=== PATIENT | female | born 1945 | race Caucasian/White ===

== ENCOUNTER 2017-01-24 09:05 | Emergency (ER) | payer OTHER ==
[2017-01-24 09:20] VITALS: BP 134/75; PULSE 91; TEMP 98.4; BMI 46.5
[2017-01-24] MEDS ORDERED: CEPHALEXIN MONOHYDRATE 500 MG CAPSULE (UD) PO ONE (10:12)
--- NOTE | 2017-01-24 10:15 | PDOC ---
History of Present Illness - General Chief Complaint: Rash Stated Complaint: RASH Time Seen by Provider: 01/24/17 09:19 - History of Present Illness Initial Comments: 01/24/17 11:48 Chief complaint: Rash on the forehead History of present illness: Patient states that she had a small pimple on her forehead, which she scratched. She subsequently developed redness and drainage in the area. No pain. No involvement of the eyes or orbits. Review of systems: No recent scalp irritation or lesions. No fever/chills. No URI symptoms, sore throat, cough, chest pain, shortness of breath, abdominal pain, nausea, vomiting, diarrhea. Past medical history: Patient has an extensive medical history including breast cancer, intermittent palpitations, ventricular tachycardia, high blood pressure , and chronic back pain. She has multiple musculoskeletal problems and chronic edema of the lower extremities. She has a pressure ulcer on her sacrum that is being treated at the wound care center [facility]. 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 The lesion is approximately 2 cm in diameter, with an erythematous base and crusting. There are no vesicles. There is no exudate or drainage. There is no involvement of the orbits or the eyes. Conjunctivae and corneas are clear. The skin is not painful and it is nontender to deep palpation. There are no lesions on the scalp. ENT clear Neck supple without bruit mass or nodes Chest clear CV without murmur or gallop Abdomen benign Impression: Skin lesion suggestive of healing herpes simplex. The patient gives a history of occasional "cold sores" on the lips, but not in this region. Other possibilities are impetigo/cellulitis Plan: Crusting was gently removed and cultures were taken of the base of the lesion, for routine C&S and herpesvirus culture. Wound care was discussed. The lesion was dressed with bacitracin and covered with a Band-Aid. Keflex was prescribed pending culture results. The patient was instructed to follow up with primary physician, but to return to the emergency room if the infection appeared to be spreading, especially involving the areas around the eyes. In no pain or other distress upon discharge with her caregiver to follow-up as directed Past History - Past Medical History Allergies/Adverse Reactions: Allergies Allergy/AdvReac Type Severity Reaction Status Date / Time Penicillins Allergy Verified 01/24/17 09:14 Home Medications: Ambulatory Orders Aspirin [ASA -] 81 mg PO DAILY 08/27/14 Diclofenac Sodium [Voltaren] 300 gm TP TID PRN 08/27/14 Ergocalciferol [Vitamin D2] 50,000 unit PO MOFR@1000 08/27/14 Gabapentin [Neurontin -] 300 mg PO DAILY 08/27/14 Lactulose 20 gm PO DAILY PRN 08/27/14 Metoprolol Succinate [Toprol XL -] 25 mg PO DAILY 08/27/14 Morphine *Sr* [MS Contin -] 30 mg PO Q12H #60 tablet.sa MDD 2 01/03/17 Cephalexin Monohydrate [Keflex] 500 mg PO Q8H #20 capsule 01/24/17 Lisinopril [Zestril] 2.5 mg PO DAILY 01/24/17 Morphine Sulfate [Morphine Sulfate ER] 15 mg PO BID MDD 2 01/24/17 Asthma: No Cancer: Yes (breast cancer tx 2005) Cardiac Disorders: Yes (PVCs palpitations) COPD: No DVT: No Diabetes: No HTN: No Liver Disease: No Seizures: No - Surgical History Orthopedic Surgery: Yes (left hip surgery ) - Suicide/Smoking/Psychosocial Hx Smoking Status: No Smoking History: Never smoked Have you smoked in the past 12 months: No Number of Cigarettes Smoked Daily: 0 If you are a former smoker, when did you quit?: 15 years ago Cigars Per Day: 0 Hx Alcohol Use: No Drug/Substance Use Hx: No Substance Use Type: None Hx Substance Use Treatment: No *Physical Exam - Vital Signs Last Vital Signs Temp Pulse Resp BP Pulse Ox 98.4 F 91 H 16 134/75 95 01/24/17 09:13 01/24/17 09:13 01/24/17 09:13 01/24/17 09:13 01/24/17 09:13 *DC/Admit/Observation/Transfer Diagnosis at time of Disposition: Skin infection - Discharge Dispostion Disposition: HOME Condition at time of disposition: Stable Admit: No - Prescriptions Prescriptions: Cephalexin Monohydrate [Keflex] 500 mg PO Q8H #20 capsule - Referrals Referrals: Eddie Gardner MD [Staff Physician] - - Patient Instructions Printed Discharge Instructions: DI for Wound Infection Additional Instructions: Wash with mild soap and water twice daily, dry, and apply bacitracin ointment Check culture results in 48 hours. Return to ER if the rash continues to spread, especially if it starts to involve the area around the eyes, or if there are any other associated symptoms such as fever or chills, muscle aches. Follow-up with primary physician in 2-3 days - Post Discharge Activity
[2017-01-24] MEDS ORDERED: CEPHALEXIN MONOHYDRATE 500 MG CAPSULE (UD) ONE (10:17)
== END 2017-01-24 10:25 | disposition home or self-care (01) ==
LOC: FER 09:05
DX: L08.9 Local infection of the skin and subcutaneous tissue, unspecified (principal); Z85.3 Personal history of malignant neoplasm of breast; Z87.891 Personal history of nicotine dependence; R00.2 Palpitations; I10 Essential (primary) hypertension; G89.29 Other chronic pain; L89.109 Pressure ulcer of unspecified part of back, unspecified stage
CPT/HCPCS: 87070; 87205; 87255; 99282-25

== ENCOUNTER 2020-08-26 04:33 | Day surgery (SDC) | payer OTHER ==
[2020-08-25 18:39] VITALS: BMI 36.6
[2020-08-26] MEDS ORDERED: DEXAMETHASONE SOD PHOSPHATE 10 MG/1 ML VIAL ONE ×2 (07:20→11:05)
[2020-08-26] MEDS ORDERED: LIDOCAINE HCL/PF 1% SDV 5ML VIAL ONE ×2 (07:20→11:06)
[2020-08-26] MEDS ORDERED: SODIUM CHLORIDE 0.9% P/F 10 ML VIAL IJ ONE (11:01)
[2020-08-26] MEDS ORDERED: LIDOCAINE 1% P/F 10 MG/ML VIAL INF ONE (11:31)
[2020-08-26] MEDS ORDERED: IOHEXOL 180 MG/1 ML ML IJ ONE (11:34)
[2020-08-26] MEDS ORDERED: DEXAMETHASONE SOD PHOSPHATE 10 MG/1 ML VIAL IVPUSH ONE (11:35)
[2020-08-26 13:23] VITALS: BP 122/65; PULSE 92; TEMP 97.3
== END 2020-08-26 12:30 | disposition home or self-care (01) ==
LOC: JASU-SURG 04:33
PROVIDERS: ATTEND Pain Medicine Pain Medicine
PROC: 3E0R33Z Introduction of Anti-inflammatory into Spinal Canal, Percutaneous Approach (ICD-10-PCS; 2020-08-26)
PROC: 3E0R3BZ Introduction of Anesthetic Agent into Spinal Canal, Percutaneous Approach (ICD-10-PCS; principal; 2020-08-26 12:30)
DX: M48.061 Spinal stenosis, lumbar region without neurogenic claudication (principal); M54.16 Radiculopathy, lumbar region
CPT/HCPCS: 76000-TC-FY; J1100

== ENCOUNTER 2020-11-15 04:27 | Day surgery (SDC) | payer OTHER ==
[2020-11-10 14:55] VITALS: BMI 37.1
[2020-11-15] MEDS ORDERED: DEXAMETHASONE SOD PHOSPHATE 4 MG/1 ML VIAL ONE (07:18)
[2020-11-15] MEDS ORDERED: LIDOCAINE HCL/PF 1% SDV 5ML VIAL ONE (07:18)
[2020-11-15] MEDS ORDERED: SODIUM CHLORIDE 0.9% P/F 10 ML VIAL IJ ONE (08:01)
[2020-11-15] MEDS ORDERED: DEXAMETHASONE SOD PHOSPHATE 10 MG/1 ML VIAL ONE (09:21)
[2020-11-15] MEDS ORDERED: DEXAMETHASONE SOD PHOSPHATE 4 MG/1 ML VIAL IVPUSH ONE (09:22)
[2020-11-15] MEDS ORDERED: IOHEXOL 180 MG/1 ML ML IJ ONE (09:22)
[2020-11-15] MEDS ORDERED: LIDOCAINE HCL 1% PRESERVATIVE FREE - 30ML VIAL PNB ONE ×2 (09:22)
[2020-11-15] MEDS ORDERED: BUPIVACAINE HCL/PF 0.5% (5MG/ML) 10 ML VIAL PNB ONE ×2 (09:22)
[2020-11-15 10:15] VITALS: BP 123/75; PULSE 71; TEMP 97.7
== END 2020-11-15 10:02 | disposition home or self-care (01) ==
LOC: JASU-SURG 04:27
PROVIDERS: ATTEND Pain Medicine Pain Medicine
PROC: 3E0R33Z Introduction of Anti-inflammatory into Spinal Canal, Percutaneous Approach (ICD-10-PCS; 2020-11-15)
PROC: 3E0R3BZ Introduction of Anesthetic Agent into Spinal Canal, Percutaneous Approach (ICD-10-PCS; principal; 2020-11-15 08:30)
DX: M54.16 Radiculopathy, lumbar region (principal)
CPT/HCPCS: 76000-TC-FY; J1100

== ENCOUNTER 2020-11-26 20:55 | Emergency (ER) | payer OTHER ==
[2020-11-26 21:08] VITALS: BP 121/64; PULSE 93; TEMP 98.5; BMI 37.1
[2020-11-26] MEDS ORDERED: ACETAMINOPHEN 500 MG TABLET (FP) PO ONE (21:46)
[2020-11-26] MEDS ORDERED: KETOCONAZOLE 2% CREAM - 60GM TUBE TP SCH (22:00)
[2020-11-26] MEDS ORDERED: valACYclovir HCL 1000 MG TABLET PO ONE (22:01)
[2020-11-26] MEDS ORDERED: ACETAMINOPHEN 325 MG TABLET (FP) ONE (22:05)
[2020-11-26] MEDS ORDERED: valACYclovir HCL 500 MG TABLET (FP) ONE (22:19)
== END 2020-11-26 22:51 | disposition home or self-care (01) ==
LOC: JER 20:55
DX: B37.2 Candidiasis of skin and nail (principal); B02.9 Zoster without complications
CPT/HCPCS: 99283-25